=== PATIENT | male | born 1960 | race African-American/Black ===

== ENCOUNTER → 2016-05-03 | Day surgery (SDC) | payer MEDICARE, OTHER ==
[~2016-05-03] MED LIST: BUPIVACAINE 0.5% 30 ML VIAL ONE; CEFAZOLIN 1 GM VIAL ONE; DEXAMETHASONE 4 MG/ML VIAL IV ONE; FENTANYL 100 MCG/2 ML VIAL IV PRN; FENTANYL 100 MCG/2 ML VIAL ONE; GLYCOPYRROLATE 1 MG VIAL IM ONE; HYDROmorphone 1 MG INJECTION IV PRN; HYDROmorphone 2 MG/ML VIAL IM ONE; LABETALOL 20 MG/4 ML SYRINGE IV PRN; MEPERIDINE 25 MG/ML TUBEX IV PRN; MIDAZOLAM 2 MG/2 ML VIAL IV ONE; NEOSTIGMINE 1 MG/1 ML (1:1000) INJ 10 ML MDV IM ONE; ONDANSETRON HCL 4 MG ODT TAB PO PRN; ONDANSETRON HCL 4 MG/2 ML VIAL IV ONE; ONDANSETRON HCL 4 MG/2 ML VIAL IV PRN; OXYCODONE HCL 5 MG TABLET ONE; PROPOFOL 200 MG/20 ML VIAL IV ONE; ROCURONIUM 50 MG/5 ML VIAL IV ONE
--- NOTE | 2016-05-03 09:37 | CAPUEKG ---
[place], [place] Test Date: 2016-05-03 Pat Name: LATOYA CLEMENTS Department: Room: Gender: Male [employer]: : Requested By: Order Number: Reading MD: Roney Telles Measurements Intervals [place] Rate: 69 P: 42 AL: 160 QRS: 57 QRSD: 136 T: 35 QT: 408 QTc: 437 Interpretive Statements Normal sinus rhythm Right bundle branch block Abnormal ECG Electronically Signed On 05-03-16 09:36:51 EST by Roney Telles <[id number]> [id number]
--- NOTE | 2016-05-03 09:59 | HIMOPRPT ---
DATE OF PROCEDURE: 05/03/16 PREOPERATIVE DIAGNOSIS: Umbilical hernia and subcutaneous mass of the left lower quadrant of the abdominal wall POSTOPERATIVE DIAGNOSIS: Umbilical hernia and subcutaneous mass of the left lower quadrant of the abdominal wall PROCEDURE: Umbilical herniorrhaphy and excision of lipoma of the left lower quadrant of the abdominal wall SURGEON: Kevin Yo MD ANESTHESIA: General, LMA. ANESTHESIOLOGIST: Dr. Velia Cheung MD SPECIMEN: Subcutaneous mass of the left lower quadrant of the abdominal wall SPONGE COUNT: Correct. PATIENT CONDITION: Stable. ESTIMATED BLOOD LOSS: 1 cc. INDICATIONS: This is a 55year old male with reducible umbilical hernia and subcutaneous mass of the left lower quadrant abdominal wall. It was recommended to the patient umbilical herniorrhaphy, possibly with mesh and excision of subcutaneous mass of the left lower quadrant of the abdominal wall. The risks associated with the operation were discussed with the patient's mother at length. The risks include, but are not limited to, bleeding, infection, injury to small or large intestine, hernia recurrence, possible reoperation at a tertiary care center, perioperative cardiac and respiratory morbidity and mortality. All questions were answered. Informed consent was obtained. FINDINGS: The patient had a 0.8 centimeter fascial defect at the umbilicus. PROCEDURE IN DETAIL: LATOYA CLEMENTS was taken to the operative suite at [facility] and placed in the supine position. The anterior abdomen was sterilely prepped and draped in the usual fashion. All members of the surgical team were in agreement, correct patient and correct procedure. A curvilinear incision was made inferior to the umbilicus and dissection was carried down to the fascial level. The umbilicus was dissected free from the hernia sac. The hernia sac was entered and no hernia contents were identified. The fascial defect was closed with a figure of eight #1 PDS suture and imbricated with an additional #1 PDS suture. The subcutaneous tissue was closed with 2 -0 Vicryl suture after tacking the umbilicus to the fascia. The area was infiltrated with local anesthetic. The incision was closed with 4-0 Monocryl subcuticular suture. Attention was turned to the left lower quadrant of the abdominal wall. A transverse incision was made over the palpable mass and carried down to the fascial level. A 1.2 centimeter lipomatous mass was identified in the subcutaneous tissue. It was excised. There was no fascial defect identified. The area was irrigated and aspirated dry. The subcutaneous tissue was closed with 2-0 Vicryl suture. The skin was closed with 4-0 Monocryl subcuticular suture after infiltration with local anesthetic. Dermabond was applied. Anesthesia was reversed and the patient was taken to the recovery area having tolerated the procedure well.
--- NOTE | 2016-05-03 10:28 | HIM.ANES ---
Anesthesia Evaluation & Plan Diagnoses: UMBILICAL HERNIA WITHOUT OBSTRUCTION OR GANGRENE (05/03/16) LEFT LOWER QUADRANT ABDOMINAL SWELLING, MASS AND LUMP (05/03/16) Consented Procedure: UMBILICAL HERNIORRAPHY POSSIBLY WITH MESH--EXCISION OF LIPOMA,LEFT LOWER QUADRANT AMDOMINAL WALL - Focused Review of Systems Cardiac History: Yes: Hx Hypertension, Hx Cardiac Disorders HEENT: Yes: Hx Vision Problem (GLASSES), Other HEENT Problems Hx Other HEENT Problems: ALLERGIC RHINNITIS Respiratory: Yes: Hx Asthma, Hx Chronic Obstructive Pulmonary Disease (COPD) ( STABLE) Gastrointestinal: Yes: Hx Gastrointestinal Disorders, Hx Colonoscopy (2013) Neurological/Musculoskeletal: Yes: Hx Back Pain (NECK), Hx Numbness, Tingling, Weakness in Arms & Legs (CERVICALGIA) No: Hx Neurological Disorders Psychological: No Hx Mental/Emotional Disorders Endocrine: Yes: Hx Diet Controlled Diabetes Blood/Autoimmune: No: Hx AIDS, Hx Hepatitis (type) Smoking Status: Former smoker - Focused Physical Exam NPO since: 05/02/160 Mallampati: Class I Neck: Full Range of Motion Dental: Normal - no significant findings Cardiovascular/Chest: Normal (RRR no mumurs or rubs.) Respiratory: Lungs clear. negative: Rhonchi, Wheezing Any problems with anesthesia, including nausea and vomiting?: No Any relatives with a history of Malignant Hyperthermia?: No Does patient have a history of Malignant Hyperthermia?: No Beta Fer given (if appropriate): N/A Does the patient have a history of Motion Sickness-: No Other: Allergies Allergy/AdvReac Type Severity Reaction Status Date / Time hydralazine Allergy LEG PAIN Verified 05/02/16 14:49 terazosin Allergy LEG PAIN Verified 05/02/16 14:49 valsartan [From Diovan] Allergy IMPOTENCE Verified 05/02/16 14:49 venom-honey bee Allergy Difficulty Verified 05/02/16 14:49 [bee venom (honey bee)] Breathing Home Medications Medication Instructions Recorded Last Taken Type Amlodipine Besylate/Benazepril 2 cap PO DAILY 05/22/12 05/03/16 06:30 History [Lotrel 5-20 mg Capsule] Simvastatin [Zocor] 80 mg PO HS 05/22/12 05/02/16 20:30 History Gabapentin [Neurontin] 600 mg PO TID PRN 04/24/16 04/26/16 History Albuterol Sulfate [Proair Hfa] 2 puff INH Q4-6H PRN 05/02/16 04/30/16 History Loratadine [Claritin] 10 mg PO DAILY 05/02/16 04/30/16 History Montelukast Sodium 1 tab PO DAILY 05/03/16 05/02/16 20:30 History Height and Weight Patient's height 5 ft 9 in Patient's weight 99.79 kg BMI 36.8 Vital Signs Temperature 97.6 F 05/03/16 09:56 Pulse Rate 88 05/03/16 10:16 Respiratory Rate 20 05/03/16 10:16 Blood Pressure 140/78 05/03/16 10:16 Pulse Oxygen Saturation 100 05/03/16 10:16 METS - Level of Activity: Climbing stairs(1 flight),walking level ground, running short distance - Anesthetic Plan Anesthesia Type: General ASA Class: 3 -: I have examined this patient and reviewed the medical record. The patient has been assessed prior to anesthesia. Risks and benefits of anesthesia and anesthetic technique options have been discussed and all questions answered. The patient accepts the risk and desires me to proceed with the planned anesthetic.
[2016-05-03 11:34] VITALS: PULSE 63; TEMP 98.1
[2016-05-03 13:11] VITALS: BP 140/78
--- NOTE | 2016-05-03 13:11 | SC.ANESPOS ---
Post-Anesthesia Note LOC: Fully Awake Post-Anesthesia Assessment: Awake, Returned to Baseline, Hemodynamically Stable , Pain Control Adequate Phase I & II Recovery Complete: Yes Apparent Anesthesia Complication: No : N - Vital Signs Blood Pressure: 140/78 Pulse: 63 Resp Rate: 16 O2 Sat: 98 Temp: 98.1 F
== END ==
LOC: SDC 07:36
PROVIDERS: ATTEND Surgery
PROC: 0WQF0ZZ Repair Abdominal Wall, Open Approach (ICD-10-PCS; principal; 2016-05-03 09:05)
PROC: 0WBF0ZZ Excision of Abdominal Wall, Open Approach (ICD-10-PCS; 2016-05-03 09:05)
DX: K42.9 Umbilical hernia without obstruction or gangrene (principal); D17.5 Benign lipomatous neoplasm of intra-abdominal organs; I10 Essential (primary) hypertension; J45.909 Unspecified asthma, uncomplicated; J44.9 Chronic obstructive pulmonary disease, unspecified; E11.9 Type 2 diabetes mellitus without complications; E78.4 Other hyperlipidemia; Z87.891 Personal history of nicotine dependence; Z79.899 Other long term (current) drug therapy
CPT/HCPCS: 22902; 49585; 82962; 93005; A9270; J0690; J1100; J1170; J2405; J2550; J2710; J3010; J3490; J2250